=== PATIENT | male | born 1955 | race African-American/Black ===

== ENCOUNTER 2017-09-08 18:05 | Emergency (ER) | payer OTHER ==
[~2017-09-08] VITALS: Ht 172.7 cm; Wt 83.9 kg
[2017-09-08 18:14] VITALS: BP 182/76
--- NOTE | 2017-09-08 18:33 | PHYS DOC ---
Past Medical History Past Medical History: Diabetes-Type II, Hypertension Past Surgical History: No Surgical History Alcohol Use: Occasionally Drug Use: None Adult General Chief Complaint Chief Complaint: lab abnormality HPI HPI 61-year-old male presenting the emergency department with reportedly elevated potassium but not outside lab. He reports being on lisinopril. He denies having history of kidney disease. He denies any symptoms. Onset today. Location generalized. Duration constant. Review of systems is negative for chest pain shortness of breath abdominal pain nausea vomiting. All other review of systems is negative unless otherwise noted in history of present illness. ED course: 61-year-old male presenting to the emergency department today with a lab abnormality. Potassium evaluated here in the emergency department was nl. Patient was subsequent discharged home. Review of Systems Review of Systems SEE ABOVE. Allergies Allergies Allergies Coded Allergies Type Severity Reaction Last Updated Verified No Known Drug Allergies 09/08/17 No Physical Exam Physical Exam SEE ABOVE Constitutional: Well developed, well nourished, no acute distress, non-toxic appearance. [] HENT: Normocephalic, atraumatic, bilateral external ears normal, oropharynx moist, no oral exudates, nose normal. [] Eyes: PERRLA, EOMI, conjunctiva normal, no discharge. [] Neck: Normal range of motion, no tenderness, supple, no stridor. [] Cardiovascular:Heart rate regular rhythm, no murmur [] Lungs & Thorax: Bilateral breath sounds clear to auscultation [] Abdomen: Bowel sounds normal, soft, no tenderness, no masses, no pulsatile masses. [] Skin: Warm, dry, no erythema, no rash. [] Back: No tenderness, no CVA tenderness. [] Extremities: No tenderness, no cyanosis, no clubbing, ROM intact, no edema. [] Neurologic: Alert and oriented X 3, normal motor function, normal sensory function, no focal deficits noted. [] Psychologic: Affect normal, judgement normal, mood normal. [] Current Patient Data Vital Signs Vital Signs Date Time Temp Pulse Resp B/P (MAP) Pulse Ox O2 Delivery O2 Flow Rate FiO2 09/08/17 18:14 98.2 59 20 100 Room Air 98.2 Lab Values Laboratory Tests Test 09/08/17 18:15 Sodium Level 139 mmol/L (136-145) Potassium Level 4.3 mmol/L (3.5-5.1) Chloride Level 103 mmol/L (98-107) Carbon Dioxide Level 26 mmol/L (21-32) Anion Gap 10 (6-14) Blood Urea Nitrogen 23 mg/dL (8-26) Creatinine 1.3 mg/dL (0.7-1.3) Estimated GFR (Cockcroft-Gault) 67.7 Glucose Level 125 mg/dL (70-99) H Calcium Level 9.7 mg/dL (8.5-10.1) Laboratory Tests 09/08/17 18:15 EKG EKG [] Radiology/Procedures Radiology/Procedures [] Course & Med Decision Making Course & Med Decision Making Pertinent Labs and Imaging studies reviewed. (See chart for details) [] Dragon Disclaimer Dragon Disclaimer This electronic medical record was generated, in whole or in part, using a voice recognition dictation system. Departure Departure Impression: Primary Impression: Laboratory test Disposition: HOME, SELF-CARE Condition: STABLE Referrals: NON,STAFF (PCP) Patient Instructions: Lisinopril tablets CHANDU COTA MD Sep 08, 2017 18:33
[2017-09-08 18:42] LABS: CALCIUM 9.7 mg/dL (8.5-10.1); CREATININE 1.3 mg/dL (0.7-1.3); GFR 67.7; POTASSIUM 4.3 mmol/L (3.5-5.1)
== END 2017-09-08 18:53 | disposition home or self-care (01) ==
LOC: ER 18:05
DX: E87.6 Hypokalemia (principal); I10 Essential (primary) hypertension; E11.9 Type 2 diabetes mellitus without complications
CPT/HCPCS: 36415; 80048; 99283

== ENCOUNTER 2018-02-18 15:26 | Emergency (ER) | payer OTHER ==
[2018-02-18] MEDS: diazePAM 2 MG TABLET PO (16:02)
[2018-02-18] MEDS: HYDROcodone/APAP 5/325MG 1 TAB TABLET PO (16:02)
== END 2018-02-18 17:12 | disposition home or self-care (01) ==
LOC: ER 15:26
DX: M51.36 Other intervertebral disc degeneration, lumbar region (principal); M79.605 Pain in left leg; E78.00 Pure hypercholesterolemia, unspecified; E11.9 Type 2 diabetes mellitus without complications; I10 Essential (primary) hypertension; M54.89 Other dorsalgia
CPT/HCPCS: 72131; 99284-25